=== PATIENT | male | born 1945 | race Caucasian/White ===

== ENCOUNTER 2023-11-22 12:58 | Emergency (ER) | payer MEDICARE ==
[~2023-11-22] VITALS: Ht 188 cm; Wt 81.6 kg
[~2023-11-22 12:58] MED LIST: DABI150C PO; HUM10VIA SQ; HYDR25TA4 PO; LISI20TA30 PO; METF-834 PO; METO25TA6 PO; SIMV-341 PO
[2023-11-22 13:00] VITALS: BP_SYST 119; PULSE 78; RESP 18; TEMP 97.6; O2SAT 98
[2023-11-22 14:54] LABS: BASOPHILS % (AUTO) 0.5 % (0.0-2.0); EOSINOPHILS # (AUTO) 0.3 K/uL (0.0-0.4); EOSINOPHILS % (AUTO) 3.9 % (0.0-4.0); HEMATOCRIT 34.1 % (36-54); HEMOGLOBIN 11.4 g/dL (14.0-18.0); LYMPHOCYTES # (AUTO) 1.4 K/uL (1.0-5.5); MEAN CORPUSCULAR HEMOGLOBIN 30 pg (27-31); MEAN CORPUSCULAR HGB CONC 33 % (32-36); MEAN CORPUSCULAR VOLUME 90 fL (79.0-98.0); MONOCYTES # (AUTO) 0.4 K/uL (0.0-1.0); MONOCYTES % (AUTO) 4.9 % (1.7-9.3); NEUTROPHILS # (AUTO) 5.3 K/uL (1.8-7.7); NEUTROPHILS % (AUTO) 71.7 % (40.0-70.0); PLATELET COUNT (AUTO) 243 K/uL (130-430); RED BLOOD CELL COUNT(AUTO) 3.77 MIL/uL (4.2-6.2); RED CELL DISTRIBUTION WIDTH 15.4 % (9.0-15.0); WHITE BLOOD COUNT (AUTO) 7.3 K/uL (4.8-10.8)
[2023-11-22] MEDS: NITROGLYCERIN 0.4 MG TAB.SUBL SL ONE (14:57)
[2023-11-22] MEDS: ASPIRIN 81 MG TAB.CHEW PO ONE (14:57)
[2023-11-22] MEDS: NITROGLYCERIN 1 INCH (GM) OINT. TP ONE (15:13)
[2023-11-22] MEDS: METOPROLOL TARTRATE 25 MG TABLET PO ONE ×2 (15:19→21:31)
[2023-11-22 15:30] LABS: ANION GAP 8 (5-15); CARBON DIOXIDE 23 mmol/L (23-29); CHLORIDE 108 mmol/L (98-107); CREATININE 1.52 mg/dL (0.55-1.30); GLUCOSE 214 mg/dL (74-106); SODIUM SERUM 139 mmol/L (136-145); UREA NITROGEN, BLOOD 40 mg/dL (8-21)
[2023-11-22 15:32] LABS: POTASSIUM 5.9 mmol/L (3.5-5.1)
[2023-11-22] MEDS: SODIUM BICARBONATE 8.4% JECT 50 MEQ/50 ML SYRINGE IVP ONE (16:04)
[2023-11-22] MEDS: DEXTROSE 50% JECT 50 ML DISP.SYRIN IVP ONE (16:08)
[2023-11-22] MEDS: SODIUM ZIRCONIUM CYCLOSILICATE 10 GM POWD.PACK PO ONE (16:18)
[2023-11-22] MEDS: INSULIN REGULAR, HUMAN 10 UNITS/0.1 ML, 3 ML VIAL IVP ONE (16:25)
[2023-11-22] MEDS: CALCIUM GLUC 1 GM/100ML-NACL 100 ML IV ONE (16:50)
[2023-11-22] MEDS: METOPROLOL TARTRATE 5 MG/5 ML VIAL IVP ONE (21:31)
[2023-11-22 21:38] VITALS: BP_SYST 146; PULSE 82; RESP 21; TEMP 97.7; O2SAT 98
== END 2023-11-22 21:38 | disposition short-term general hospital (02) ==
LOC: SED 12:58
DX: R07.9 Chest pain, unspecified (principal); N17.9 Acute kidney failure, unspecified; E87.5 Hyperkalemia; I24.9 Acute ischemic heart disease, unspecified; I44.1 Atrioventricular block, second degree; E11.9 Type 2 diabetes mellitus without complications; I10 Essential (primary) hypertension; Z79.899 Other long term (current) drug therapy
CPT/HCPCS: 99291; 96365; 71045; 96375; 80048; 83880; 85025; 84484; 36415; 93005; 99292; 82948; 84132; J1815